=== PATIENT | female | born 1980 | race Caucasian/White ===

== ENCOUNTER 2017-07-01 17:11 | Emergency (ER) | payer BC ==
[2017-07-01] MEDS: ONDANSETRON PF 4 MG/2 ML VIAL. IV (17:45)
[2017-07-01] MEDS: fentaNYL PF VIAL 100 MCG/2 ML VIAL IV (17:45)
[2017-07-01] MEDS: IV NORMAL SALINE 1000ML BAG 1,000 ML IV (18:30)
[2017-07-01] MEDS: PROPOFOL 20 ML IV (19:21)
[2017-07-01] MEDS: HYDROcodone/APAP 5/325MG 1 TAB TABLET PO (19:55)
[2017-07-01] MEDS: diazePAM 5 MG TABLET PO (19:55)
[2017-07-01] MEDS: KETOROLAC 30 MG/ML INJ. IV (19:55)
== END 2017-07-01 19:59 | disposition home or self-care (01) ==
LOC: ER 17:11
DX: S43.015A Anterior dislocation of left humerus, initial encounter (principal); X58.XXXA Exposure to other specified factors, initial encounter; Y93.18 Activity, surfing, windsurfing and boogie boarding; Y92.89 Other specified places as the place of occurrence of the external cause; Y99.8 Other external cause status
CPT/HCPCS: 23650; 73030; 96361; 96374; 96375; 99285-25; J1885; J2405; J2704; J3010; J7030